=== PATIENT | male | born 2000 | race Caucasian/White ===

== ENCOUNTER 2022-04-13 18:09 | Emergency (ER) | payer OTHER ==
[2022-04-13 18:22] VITALS: BP 160/75
--- NOTE | 2022-04-13 18:50 | ED Physician Documentation ---
PD HPI UPPER EXT INJURY - Stated complaint Stated Complaint: L ARM INJ - Chief complaint Chief Complaint: Ext Problem - History obtained from History obtained from: Patient - Additonal information Additional information: 22-year-old [id number] gentleman was lifting weights doing dumbbell presses tonight and felt a pop in the left bicep. No other injuries. Pain is moderate but not severe. Review of Systems Constitutional: reports: Reviewed and negative Throat: reports: Reviewed and negative Cardiac: reports: Reviewed and negative Respiratory: reports: Reviewed and negative PD PAST MEDICAL HISTORY - Allergies Allergies/Adverse Reactions: Allergies Allergy/AdvReac Type Severity Reaction Status Date / Time Penicillins Allergy Unknown Verified 04/13/22 18:12 PD ED PE NORMAL - Vitals Vital signs reviewed: Yes - General General: Alert and oriented X 3, No acute distress - Extremities Extremities: Other (He does have a "Brock" deformity of the left bicep, but strength of the bicep in all positions of the left forearm is actually fairly well preserved.) - Neuro Neuro: Alert and oriented X 3, Normal speech Results - Vitals Vitals: Vital Signs - 24 hr 04/13/22 18:12 Temperature 36.5 C Heart Rate 82 Respiratory 16 Rate Blood Pressure 160/75 H O2 Saturation 96 Oxygen O2 Source Room air Procedures - Splint (location) L arm Splint applied by: Tech Type of splint: Long arm, Posterior Other: Patient tolerated well, No complications, Neurovascular intact Departure - Departure Disposition: 01 Home, Self Care Clinical Impression: Tear of left biceps muscle Condition: Good Record reviewed to determine appropriate education?: Yes Comments: As discussed, it seems that you probably have a partial bicep tear on the left. Keep the splint on and dry with sling in place, [place]. Tylenol and/or ibuprofen as needed for pain. Return for new or worsening symptoms. Forms: Activity restrictions
== END 2022-04-13 19:25 | disposition home or self-care (01) ==
LOC: ED 18:09
DX: S46.212A Strain of muscle, fascia and tendon of other parts of biceps, left arm, initial encounter (principal); X50.0XXA Overexertion from strenuous movement or load, initial encounter; Y93.79 Activity, other specified sports and athletics
CPT/HCPCS: 99282

== ENCOUNTER 2022-04-22 07:59 | Outpatient (CLI) | payer OTHER ==
--- NOTE | 2022-04-23 15:18 | MRI Report ---
PROCEDURE: CHEST WO INDICATIONS: PETTORALIS MAJOR RUPTURE TECHNIQUE: Axial and oblique coronal T1 spin echo and T2 spin echo with fat saturation, sagittal T1 spin echo an d STIR acquired through the affected chest wall. COMPARISON: None FINDINGS: Image quality: Excellent. Soft tissues: There is full-thickness rupture involving sternal head of left pectoralis major at its insertion on proximal humeral shaft with up to 3.1 cm medial retraction of torn muscle fibers and mod erate to large amount of surrounding fluid. Straightening/low-grade partial thickness tear involving clavicular head of the left pectoralis major muscle is also seen. Other visualized muscles appear int act, including the pectoralis minor and coracobrachialis. Bones: Visualized bony structures of the chest wall and upper arm appear intact, without focal marro w edema. IMPRESSION: 1. Full-thickness rupture involving sternal head of left pectoralis major muscle at its proximal mitesh ral shaft insertion with up to 3.1 cm medial retraction of torn muscle fibers and significant surroun ding edema and fluid. Straightening/low-grade partial thickness tear involving clavicular head of lef t pectoralis major muscle. 2. No marrow edema. No fracture or dislocation. 3. No other muscle or tendon signal abnormality is seen. Reviewed by: Diogo Velez MD on 04/23/2022 3:16 PM PDT Approved by: Diogo Velez MD on 04/23/2022 3:16 PM PDT Station ID: [id number]
== END 2022-04-22 08:00 | disposition home or self-care (01) ==
LOC: DI 07:59
PROVIDERS: ATTEND Orthopaedic Surgery
DX: S29.011A Strain of muscle and tendon of front wall of thorax, initial encounter (principal)